=== PATIENT | female | born 1990 | race Caucasian/White ===

== ENCOUNTER 2017-10-04 15:31 | Emergency (ER) | payer OTHER, MEDICAID ==
[~2017-10-04] VITALS: Ht 160 cm; Wt 68.0 kg
[~2017-10-04 15:31] MED LIST: AMOX500T PO; HYDR-3533 PO
[2017-10-04 15:49] VITALS: BP 114/58; PULSE 94; RESP 17; TEMP 98.4; O2SAT 100
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
[2017-10-04 17:11] VITALS: BP 103/60; PULSE 72; RESP 16; O2SAT 100
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
== END 2017-10-04 17:56 | disposition home or self-care (01) ==
LOC: NEPD 15:31
DX: M54.2 Cervicalgia (principal); S00.83XA Contusion of other part of head, initial encounter; V43.52XA Car driver injured in collision with other type car in traffic accident, initial encounter
CPT/HCPCS: 70450; 72125; 99284